=== PATIENT | male | born 1995 | race Caucasian/White ===

== ENCOUNTER 2018-07-24 13:18 | Emergency (ER) | payer OTHER ==
[~2018-07-24] VITALS: Ht 180.3 cm; Wt 81.8 kg
[~2018-07-24 13:18] MED LIST: POLY119P2 PO
[2018-07-24 13:56] VITALS: BP 119/75
== END 2018-07-24 15:15 | disposition left against medical advice (07) ==
LOC: ER 13:19
DX: G89.18 Other acute postprocedural pain (principal); M79.642 Pain in left hand; Z53.21 Procedure and treatment not carried out due to patient leaving prior to being seen by health care provider; Z98.890 Other specified postprocedural states

== ENCOUNTER 2018-11-09 11:49 | Emergency (ER) | payer SELFPAY ==
[~2018-11-09] VITALS: Ht 180.3 cm; Wt 77.3 kg
[2018-11-09 11:50] VITALS: BP 141/63
== END 2018-11-09 12:01 ==
LOC: ER 11:50
DX: F11.90 Opioid use, unspecified, uncomplicated (principal); Z02.89 Encounter for other administrative examinations; F15.90 Other stimulant use, unspecified, uncomplicated; Z79.899 Other long term (current) drug therapy; Z98.890 Other specified postprocedural states; V49.9XXA Car occupant (driver) (passenger) injured in unspecified traffic accident, initial encounter; Y93.89 Activity, other specified; Y92.488 Other paved roadways as the place of occurrence of the external cause; Y99.8 Other external cause status
CPT/HCPCS: 99283

== ENCOUNTER 2021-01-13 14:19 | Emergency (ER) | payer OTHER ==
[~2021-01-13] VITALS: Ht 180.3 cm; Wt 86.4 kg
[2021-01-13 14:29] VITALS: BP 115/70
== END 2021-01-13 15:21 | disposition home or self-care (01) ==
LOC: ER 14:19
DX: F11.90 Opioid use, unspecified, uncomplicated (principal); F17.200 Nicotine dependence, unspecified, uncomplicated; F15.90 Other stimulant use, unspecified, uncomplicated; Z72.89 Other problems related to lifestyle; Z79.899 Other long term (current) drug therapy
CPT/HCPCS: 99281